=== PATIENT | female | born 1955 | race Caucasian/White ===

== ENCOUNTER → 2017-10-21 | Outpatient (CLI) | payer OTHER ==
[~2017-10-21] MED LIST: 00186-0372-20 IH; ASPIRIN 81M81 MG/TA2 PO; ASPIRIN E.C. 8181 MG PO; CLARITIN 1010 MG/TAB PO; CO Q10 PO; COZAAR100 MG PO; CYMBALTA 60MG60 MG PO; FLAGYL500 MG PO; LYRICA 25MG CAP25 MG PO; MEDROL 4MG DOSPA4 MG PO; NORVASC 10MG10 MG PO; NORVASC2.5 MG PO; OMEGA-3 FISH1200 MG PO; PLAQUENIL 200M200 MG PO; PREDNISONE10 MG PO; PRILOSEC 20MG20 MG PO; RESTASIS 60VL OU; THE MEDICINE S200 M2 PO; TOPROL XL 25MG25 MG PO; TYLENOL 325MG325 MG PO; TYLENOL 8 HR PO; TYLENOL PM EXTR1 TA1 PO; VITAMIN D 1001000 IU PO; VITAMIN E1000 U/CAP PO; ZITHROMAX Z PA250 MG PO; ZOFRAN ODT4 MG PO
== END ==
LOC: MC.RAD 09-26 15:00
DX: Z12.31 Encounter for screening mammogram for malignant neoplasm of breast (principal)

== ENCOUNTER → 2018-11-25 | Outpatient (CLI) | payer OTHER | LOC: COL.RAD 07:55 | DX: N30.20 Other chronic cystitis without hematuria (principal) ==

== ENCOUNTER → 2019-01-04 | Outpatient (CLI) | payer OTHER | LOC: COL.RAD 09:34 | DX: R10.11 Right upper quadrant pain (principal); R10.12 Left upper quadrant pain; Z87.442 Personal history of urinary calculi | CPT/HCPCS: Q9967 ==